=== PATIENT | male | born 1985 | race African-American/Black ===

== ENCOUNTER 2020-01-02 18:36 | Emergency (ER) | payer OTHER ==
[~2020-01-02] VITALS: Ht 165.1 cm; Wt 88.0 kg
[2020-01-02 18:56] VITALS: Ht 165.1 cm; Wt 88.0 kg
[2020-01-02 20:54] VITALS: BP 124/82
== END 2020-01-02 20:54 | disposition home or self-care (01) ==
LOC: ED 18:36
DX: S01.81XA Laceration without foreign body of other part of head, initial encounter (principal); W20.8XXA Other cause of strike by thrown, projected or falling object, initial encounter; Y93.89 Activity, other specified; Y92.89 Other specified places as the place of occurrence of the external cause; Y99.8 Other external cause status; J45.909 Unspecified asthma, uncomplicated; Z88.8 Allergy status to other drugs, medicaments and biological substances
CPT/HCPCS: J2001

== ENCOUNTER 2020-01-11 10:15 | Emergency (ER) | payer OTHER ==
[~2020-01-11] VITALS: Ht 165.1 cm; Wt 105.2 kg
[2020-01-11 10:24] VITALS: Ht 165.1 cm; Wt 105.2 kg
[2020-01-11 11:04] VITALS: BP 131/88
== END 2020-01-11 11:04 | disposition home or self-care (01) ==
LOC: ED 10:15
DX: S01.81XD Laceration without foreign body of other part of head, subsequent encounter (principal); J45.909 Unspecified asthma, uncomplicated; Z88.8 Allergy status to other drugs, medicaments and biological substances; W01.198D Fall on same level from slipping, tripping and stumbling with subsequent striking against other object, subsequent encounter

== ENCOUNTER 2020-04-20 23:09 | Emergency (ER) | payer OTHER ==
[~2020-04-20] VITALS: Ht 165.1 cm; Wt 89.1 kg
[2020-04-21 01:29] VITALS: BP 126/80
== END 2020-04-21 01:29 | disposition home or self-care (01) ==
LOC: ED 23:09
DX: S61.012A Laceration without foreign body of left thumb without damage to nail, initial encounter (principal); S61.215A Laceration without foreign body of left ring finger without damage to nail, initial encounter; J45.909 Unspecified asthma, uncomplicated; W26.8XXA Contact with other sharp object(s), not elsewhere classified, initial encounter; Y93.89 Activity, other specified; Y92.89 Other specified places as the place of occurrence of the external cause; Y99.8 Other external cause status
CPT/HCPCS: J2001

== ENCOUNTER 2020-04-28 20:11 | Emergency (ER) | payer OTHER ==
[~2020-04-28] VITALS: Ht 165.1 cm; Wt 88.5 kg
[2020-04-28 20:49] VITALS: BP 116/73; Ht 165.1 cm; Wt 88.5 kg
== END 2020-04-28 21:34 | disposition home or self-care (01) ==
LOC: ED 20:11
DX: S61.012D Laceration without foreign body of left thumb without damage to nail, subsequent encounter (principal); J45.909 Unspecified asthma, uncomplicated; Z88.6 Allergy status to analgesic agent; X58.XXXD Exposure to other specified factors, subsequent encounter